=== PATIENT | female | born 1985 | race African-American/Black ===

== ENCOUNTER 2025-04-16 20:05 | Inpatient (IN) | payer OTHER ==
[~2025-04-16] VITALS: Ht 165.1 cm; Wt 121.1 kg
[2025-04-16] MEDS ORDERED: METOCLOPRAMIDE HCL 10 MG/2 ML VIAL ONE (20:51)
[2025-04-16] MEDS ORDERED: ACETAMINOPHEN 325 MG TABLET ONE (20:51)
[2025-04-16] MEDS ORDERED: ENALAPRILAT INJ (1.25 MG/ML) 1.25 MG/ML VIAL IV ONE (20:51)
[2025-04-16 20:56] LABS: PLATELET COUNT (AUTO) 202 K/uL (150-450); RED BLOOD CELL COUNT(AUTO) 5.14 MIL/uL (4.0-5.2); RED CELL DISTRIBUTION WIDTH 14.9 % (11.5-15.0); WHITE BLOOD COUNT (AUTO) 10.6 K/uL (4.3-11.0)
[2025-04-16] MEDS: ACETAMINOPHEN 325 MG TABLET PO ONE (21:00)
[2025-04-16 21:09] LABS: ASPARTATE AMINOTRANSFERASE 20 U/L (15-37); CALCIUM, SERUM 8.3 mg/dL (8.5-10.1); CREATININE 1.1 mg/dL (0.6-1.3); SODIUM SERUM 141 mmol/L (136-145); TOTAL PROTEIN, SERUM 7.1 g/dL (6.4-8.2); UREA NITROGEN, BLOOD 13 mg/dL (7-18)
[2025-04-16] MEDS: ENALAPRILAT INJ (1.25 MG/ML) 1.25 MG/ML VIAL IV ONE (21:11)
[2025-04-16] MEDS: METOCLOPRAMIDE HCL 10 MG/2 ML VIAL IV ONE (21:11)
[2025-04-16] MEDS ORDERED: hydrALAZINE HCL IV 20 MG VIAL ONE (21:56)
[2025-04-16] MEDS: hydrALAZINE HCL IV 20 MG VIAL IV ONE (22:00)
[2025-04-16] MEDS ORDERED: ONDANSETRON HCL/PF 4 MG/2 ML VIAL ONE (22:02)
[2025-04-16] MEDS ORDERED: MORPHINE SULFATE INJ 4 MG/ML DISP.SYRIN ONE (22:03)
[2025-04-16] MEDS: MORPHINE SULFATE INJ 2 MG/ML DISP.SYRIN IV ONE (22:06)
[2025-04-16] MEDS: ONDANSETRON HCL/PF 4 MG/2 ML VIAL IV ONE (22:06)
[2025-04-16] MEDS: KETOROLAC TROMETHAMINE 15 MG/ML VIAL IV ONE (22:18)
[2025-04-16] MEDS: LABETALOL 20 MG/4 ML VIAL IV ONE (23:04)
[2025-04-17 00:23] VITALS: BP 149/100; TEMP 97.5; O2SAT 96
[2025-04-17] MEDS ORDERED: ACETAMINOPHEN 325 MG TABLET PO PRN (01:00)
[2025-04-17] MEDS ORDERED: Z GUARD REMEDY 4 OZ OINT TP PRN (01:00)
[2025-04-17] MEDS ORDERED: ONDANSETRON HCL/PF 4 MG/2 ML VIAL IVP PRN (01:00)
[2025-04-17] MEDS: NIFEdipine XL (30MG) 30 MG TAB PO SCH (01:30)
[2025-04-17 04:00] VITALS: BP 166/110; TEMP 97.5; O2SAT 96
[2025-04-17] MEDS: hydrALAZINE HCL IV 20 MG VIAL IV PRN (04:03)
[2025-04-17 08:00] VITALS: BP 142/90; TEMP 98.1; O2SAT 94
[2025-04-17] MEDS ORDERED: SPIR25TA PO (08:04)
[2025-04-17] MEDS: LISINOPRIL (20MG) 20 MG TABLET PO SCH (08:13)
[2025-04-17 12:00] VITALS: BP 112/79; TEMP 97.7; O2SAT 97
[2025-04-17 16:00] VITALS: BP 128/82; TEMP 97.3; O2SAT 95
[2025-04-17] MEDS ORDERED: NIFE-35 PO (16:20)
[2025-04-17] MEDS ORDERED: LISI20TA30 PO (16:20)
[2025-04-18] MEDS ORDERED: SPIRONOLACTONE 25 MG TABLET PO SCH (09:00)
[2025-04-19 01:11] LABS: FOLIC ACID 16.9 ng/mL (>3.0)
== END 2025-04-17 17:38 | disposition home or self-care (01) | DRG 199 ==
LOC: ER 20:19 → ICUOV 23:52 → TELE1 04-17 00:09
PROVIDERS: ADMIT Nurse Practitioner Acute Care; ATTEND Nurse Practitioner Acute Care
DX: I16.0 Hypertensive urgency (principal); E11.65 Type 2 diabetes mellitus with hyperglycemia; E66.9 Obesity, unspecified; I10 Essential (primary) hypertension; G44.009 Cluster headache syndrome, unspecified, not intractable; Z68.41 Body mass index [BMI] 40.0-44.9, adult; Z91.199 Patient's noncompliance with other medical treatment and regimen due to unspecified reason; Z71.6 Tobacco abuse counseling; F17.210 Nicotine dependence, cigarettes, uncomplicated
CPT/HCPCS: 36415; 70450-TC; 71045-TC; 80048-TC; 80076-TC; 82607-TC; 83921; 84425; 84443-TC; 84484-TC; 84702-TC; 85025-TC; G0378; J0360; J1200; J1885; J2270; J2405; J2765; J3490